=== PATIENT | female | born 1965 | race Caucasian/White ===

== ENCOUNTER 2021-06-25 11:34 | Emergency (ER) | payer BC, MEDICAID ==
[2021-06-25] MEDS ORDERED: LORazepam 2 MG/ML SDV IVPUSH ONE (11:51)
[2021-06-25] MEDS ORDERED: Sodium Chloride 0.9% 1,000 ML IV ONE (11:51)
[2021-06-25] MEDS ORDERED: Ondansetron 4 MG/2 ML SDV IVPUSH ONE (11:51)
[2021-06-25] MEDS ORDERED: Ketorolac 30 MG/ML SDV IVPUSH ONE (11:51)
[2021-06-25] MEDS ORDERED: diphenhydrAMINE 50 MG/ML SDV IVPUSH ONE (13:07)
[2021-06-25] MEDS ORDERED: Acetaminophen 500 MG Tab PO ONE (13:08)
== END 2021-06-25 14:36 | disposition home or self-care (01) ==
LOC: MW.ED 11:34
DX: G44.209 Tension-type headache, unspecified, not intractable (principal)
CPT/HCPCS: 96374; 96375; 99283; A9270; J1200; J1885; J2060; J2405; J7030